=== PATIENT | male | born 1980 | race Caucasian/White ===

== ENCOUNTER 2016-10-26 10:32 | Emergency (ER) | payer OTHER ==
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
[2016-10-26 11:15] LABS: BASOPHIL # 0.1 K/uL (0.0-0.2); BASOPHIL % 1.6 %; EOSINOPHIL # 0.2 K/uL (0.0-0.5); EOSINOPHIL % 3.9 %; HEMATOCRIT 46.6 % (37.0-53.0); IMMATURE GRANULOCYTE % 0.3 %; LYMPHOCYTE # 0.8 K/uL (0.8-4.0); LYMPHOCYTE % 21.8 %; MCH 31.7 pg (27.0-34.0); MCHC 34.3 gm/dL (32.0-36.5); MCV 92.3 fl (83.0-98.0); MONOCYTE # 0.6 K/uL (0.0-1.0); MONOCYTE % 16.6 %; MPV 10.5 fl (9.4-12.4); NEUTROPHIL # (ANC) 2.1 K/uL (1.4-9.0); NEUTROPHIL % 55.8 %; NRBC % 0 /100WBC (0-0.00); PLATELET COUNT 293 K/uL (150-450); RBC 5.05 M/uL (4.00-6.00); RDW-CV 14.2 % (11.9-14.6); WBC 3.8 K/uL (4.0-11.0)
[2016-10-26 11:23] LABS: INR - (THERAPEUTIC) 1.03 (0.92-1.07); PROTIME 10.8 SECONDS (9.8-11.4); PTT 25 SECONDS (25-32)
[2016-10-26 11:31] LABS: ALBUMIN 3.9 gm/dL (3.5-5.0); ALK PHOS 42 IU/L (33-138); ALT 33 IU/L (12-78); ANION GAP 9.9 (10.0-19.0); AST 18 IU/L (10-40); BLOOD UREA NITROGEN 18 mg/dL (6-24); CALCIUM 8.8 mg/dL (8.5-10.5); CHLORIDE 106 mMol/L (96-110); CO2 29 mMol/L (22-32); CREATININE 1.1 mg/dL (0.6-1.3); ESTIMATED GFR (MDRD EQUATION) > 60; POTASSIUM 3.9 mMol/L (3.7-5.1); SODIUM 141 mMol/L (135-145); TOTAL BILIRUBIN 0.6 mg/dL (0.0-1.5); TOTAL PROTEIN 6.9 g/dL (6.0-8.4)
== END 2016-10-26 12:32 | disposition disaster alternative care site (69) ==
LOC: GACC 10:32
PROVIDERS: Family Medicine
DX: M54.2 Cervicalgia (principal); M54.5 Low back pain; V49.40XA Driver injured in collision with unspecified motor vehicles in traffic accident, initial encounter; Y92.410 Unspecified street and highway as the place of occurrence of the external cause; Z79.899 Other long term (current) drug therapy
CPT/HCPCS: G0480